=== PATIENT | male | born 1950 | race Caucasian/White ===

== ENCOUNTER 2017-12-12 09:44 | Day surgery (SDC) ==
[2017-12-12 10:54] VITALS: TEMP 97.8
[2017-12-12] MEDS ORDERED: LIDOCAINE 1% 20 ML MDV ID STA (10:56)
[2017-12-12] MEDS ORDERED: VERSED ONE (11:37)
[2017-12-12] MEDS ORDERED: DIPRIVAN 20 ML VIAL IVP ONE (11:37)
[2017-12-12] MEDS ORDERED: SUBLIMAZE ONE (11:37)
--- NOTE | 2017-12-13 10:50 | OP ---
INDICATIONS FOR PROCEDURE: 67 year old gentleman presents for colonoscopy exam. He has a remote history of adenomatous polyps with his last colonoscopy over 5 years ago. MEDICATIONS: SEE ANESTHESIA NOTES. PROCEDURE: COLONOSCOPY. SNARE POLYPECTOMY. REPORT: The risks, benefits, alternatives and limitations were discussed in detail with the patient. Informed consent was obtained. After adequate sedation was achieved, a digital rectal exam revealed good tone, no masses. The colonoscope was introduced into the rectum and advanced under direct visual guidance to the cecum. The cecum was identified by the appendiceal orifice and IC valve. I then slowly withdrew the scope in circumferential manner and examined the mucosa quite carefully. I looked on the proximal and distal sides of the folds and flexures as best as possible and was able to retroflex the scope in the right colon and the left colon to increase visualization. In the proximal transverse colon I encountered three polyps. These range in size from 4-7mm and were semi sessile. These were all removed by snare technique. In the descending area there is a 5mm sessile that was removed by snare technique. There was scattered diverticulosis throughout the sigmoid. On retroflex view of the anal canal there was a small internal hemorrhoid. No other abnormalities were noted. The prep was good and the withdraw time was 14 minutes and 15 seconds. The patient tolerated the procedure well with stable vital signs and pulse oximetry throughout. IMPRESSION: 1. 4 polyps removed as above. 2. Diverticulosis 3. Small internal hemorrhoid RECOMMENDATIONS: 1. High fiber diet 2. Office visit as needed 3. Await polyp pathology and if everything is benign as expected I recommend surveillance colonoscopy examination again in 3 years or sooner if there are any signs or symptoms to indicate otherwise. CC: Dr. Jean ADDENDUM: I was not able to take pictures from the procedure secondary to the equipment. SHERRI
[2017-12-14 12:30] VITALS: BP 128/78
== END 2017-12-12 12:45 | disposition home or self-care (01) ==
LOC: SURG 09:44
PROVIDERS: ATTEND Internal Medicine Gastroenterology
DX: D12.4 Benign neoplasm of descending colon (principal); D12.3 Benign neoplasm of transverse colon; K57.90 Diverticulosis of intestine, part unspecified, without perforation or abscess without bleeding; K64.8 Other hemorrhoids